=== PATIENT | female | born 1955 | race American Indian/Alaskan Native ===

== ENCOUNTER 2020-08-09 12:18 | Emergency (ER) | payer SELFPAY ==
--- NOTE | 2020-08-09 12:49 | Emergency Department Report ---
ED Extremity Problem HPI - General Chief complaint: Extremity Injury, Lower Stated complaint: ANKLE PAIN/HIGH BLOOD PRESSURE Time Seen by Provider: 08/09/20 12:47 Source: patient Mode of arrival: Stretcher Limitations: Physical Limitation - History of Present Illness Initial comments: Patient is a 64-year-old female presents emergency department for evaluation of right ankle injury sustained yesterday while walking upstairs. Patient states she inverted her ankle. Patient states pain is gotten gradually worse and now is having difficulty ambulating. Patient denies other injury - Related Data Allergies Allergy/AdvReac Type Severity Reaction Status Date / Time No Known Allergies Allergy Unverified 08/09/20 13:16 ED Review of Systems ROS: Stated complaint: ANKLE PAIN/HIGH BLOOD PRESSURE Other details as noted in HPI Comment: All other systems reviewed and negative ED Past Medical Hx - Past Medical History Hx Heart Attack/AMI: Yes Hx Diabetes: Yes - Surgical History Additional Surgical History: hernia repair as a baby - Social History Smoking Status: Never Smoker Substance Use Type: None ED Physical Exam - General Limitations: No Limitations General appearance: alert - Eye Eye exam: Present: normal appearance Pupils: Present: normal accommodation - Respiratory Respiratory exam: Present: normal lung sounds bilaterally - Cardiovascular Cardiovascular Exam: Present: regular rate - GI/Abdominal GI/Abdominal exam: Present: soft - Extremities Exam Extremities exam: Present: other (Mild swelling and tenderness to right lateral malleolus of right ankle) - Neurological Exam Neurological exam: Present: alert, oriented X3 - Psychiatric Psychiatric exam: Present: normal affect - Skin Skin exam: Present: warm, dry, intact ED Course Vital Signs 08/09/20 08/09/20 12:33 12:40 Temperature 98.7 F Pulse Rate 73 Respiratory 15 Rate Blood Pressure 198/94 O2 Sat by Pulse 100 Oximetry - Reevaluation(s) Reevaluation #1: 08/09/20 13:55 Aircast applied, patient given crutches and crutch walking instructions, instructed in nonweightbearing until cleared by orthopedics or completely asymptomatic. ED Medical Decision Making - Lab Data Vital Signs 08/09/20 08/09/20 12:33 12:40 Temperature 98.7 F Pulse Rate 73 Respiratory 15 Rate Blood Pressure 198/94 O2 Sat by Pulse 100 Oximetry - Radiology Data Radiology results: report reviewed Right ankle x-ray negative per radiology Critical care attestation.: If time is entered above; I have spent that time in minutes in the direct care of this critically ill patient, excluding procedure time. ED Disposition Clinical Impression: Right ankle injury, Hypertensive disorder Disposition: - TO HOME OR SELFCARE Is pt being admited?: No Condition: Stable Instructions: Hypertension (ED) Additional Instructions: Follow-up with PMD or orthopedics in 1 to 2 days for reevaluation. Please note you may require MRI of your ankle. Do not place weight on ankle if this is causing discomfort. Return to the emergency department for worsening symptoms. Referrals: MAJO INFANTE MD [Staff Physician] - 3-5 Days TOMAS TSAI MD [Staff Physician] - 3-5 Days
--- NOTE | 2020-08-09 13:23 | XRay Report ---
RIGHT ANKLE 3 VIEWS INDICATION / CLINICAL INFORMATION: trauma COMPARISON: None available. FINDINGS: BONES / JOINT(S): No acute fracture or subluxation. No significant arthritis. SOFT TISSUES: Diffuse soft tissue swelling. ADDITIONAL FINDINGS: None. Signer Name: Horace Zamora MD Signed: 08/09/2020 1:18 PM Workstation Name: [id number]
[2020-08-09 14:41] VITALS: BP 178/88
== END 2020-08-09 15:00 | disposition home or self-care (01) ==
LOC: ED 12:18
DX: S99.911A Unspecified injury of right ankle, initial encounter (principal); I10 Essential (primary) hypertension; I25.2 Old myocardial infarction; Z79.899 Other long term (current) drug therapy; X58.XXXA Exposure to other specified factors, initial encounter; Y93.89 Activity, other specified; Y92.89 Other specified places as the place of occurrence of the external cause; Y99.8 Other external cause status